=== PATIENT | male | born 1990 | race Caucasian/White ===

== ENCOUNTER 2022-09-21 12:07 | Emergency (ER) | payer BC, SELFPAY ==
[2022-09-21 12:15] VITALS: BP 153/82; PULSE 88; RESP 16; TEMP 36.6; O2SAT 98
--- NOTE | 2022-09-21 12:39 | ED.GENADULT ---
HPI - General Adult General Chief complaint: Dental/Oral Stated complaint: CANKER SORES/SWELLING Source: patient Mode of arrival: ambulatory Limitations: no limitations History of Present Illness HPI narrative: Patient presents for evaluation of a canker sore to the right posterior upper gums for the last week. He has tried several therapies [id number] including or gel which not particularly help. Does consume spicy food frequently. Denies consistent intake of citrus. Reports some pain in his upper and lower gums but denies any known dental fracture. No fever, chills, nausea, vomiting, trismus, problems and secretions. Related Data Allergies Allergy/AdvReac Type Severity Reaction Status Date / Time No Known Allergies Allergy Verified 09/21/22 12:27 Review of Systems Review of Systems: CONSTITUTIONAL: Denies fever, chills, or sweats. EYES: Denies visual changes, redness, or discharge. ENT: Reports pain in upper and lower gums. Reports canker sore to the right upper gum line CARDIOVASCULAR: Denies chest pain, palpitations, or edema. RESPIRATORY: Denies cough or dyspnea. GASTROINTESTINAL: Denies abdominal pain, nausea, vomiting, or diarrhea. GENITOURINARY: Denies dysuria or hematuria. SKIN: Denies rash or itching. MUSCULOSKELETAL: Denies back pain, joint pain, or myalgia. NEUROLOGIC: Denies headache, numbness, dizziness, or weakness. PSYCHIATRIC: Denies anxiety or depression. PMFSH Past Medical History Medical History (Updated 09/21/22 @ 12:44 by Junior Reilly, COOLING SYSTEM OPERATOR, ) No pertinent past medical history Surgical History Surgical History No pertinent past surgical history Family History Family History Mother Family history non-contributory Social History Social History Smoking status: Current every day smoker Tobacco type: e-cigarettes/vaping Substance use: never Gender identity (if verbalized by the patient): Male Spiritual care concerns: No Exam Narrative: GENERAL: Well-appearing, well-nourished, and in no acute distress. HEAD: Normocephalic, atraumatic. EYES: PERRLA and EOMI. ENT: Nares clear, no rhinorrhea or epistaxis. Mucous membranes moist. there is some superficial erosion to the gumline fo posterior aspect of right upper gums. There is tenderness in upper and lower gums without any visible or palpable abscess. No dental fracture visualized. NECK: Supple. No adenopathy or masses. No carotid bruits or JVD CHEST: Clear to auscultation. No respiratory distress. No wheezes rales or rhonchi HEART: Regular rate and rhythm. No murmur heard. Normal peripheral pulses. ABDOMEN: Soft, nontender, nondistended, normal active bowel sounds. EXTREMITIES: Normal range of motion. No edema. SKIN: Warm, dry, no rash. NEURO: No focal deficits. Alert and oriented x3. PSYCH: Normal mood and affect. Course Course Emergency Course: This is a 31-year-old male who presented for evaluation of a canker sore in the right upper gums. Advised he did salt water gargles. Will add triamcinolone dental paste. I do not appreciate any dental abscess but will cover with oral abx in event he has a developing infection. Advise on foods which may exacerbate his symptoms. He should follow up with dentist. Go to ER for worsening symptoms. Pt in agreement with plan of care. Level of Care: Express Care Visit Vital Signs Vital signs: Vital Signs Temperature 36.6 C 09/21/22 12:15 Pulse Rate 88 09/21/22 12:15 Respiratory Rate 16 09/21/22 12:15 Blood Pressure 153/82 H 09/21/22 12:15 Pulse Oximetry 98 09/21/22 12:15 Temperature 36.6 C 09/21/22 12:15 Pulse Rate 88 09/21/22 12:15 Respiratory Rate 16 09/21/22 12:15 Blood Pressure 153/82 H 09/21/22 12:15 Pulse Oximetry 98 09/21/22 12:15
== END 2022-09-21 12:30 | disposition home or self-care (01) ==
PROVIDERS: Emergency Provider Nurse Practitioner
DX: K12.0 Recurrent oral aphthae (principal); K08.89 Other specified disorders of teeth and supporting structures
CPT/HCPCS: 99213; G0463

== ENCOUNTER 2022-11-03 18:02 | Emergency (ER) | payer BC, SELFPAY ==
[2022-11-03 18:07] VITALS: BP 151/96; PULSE 79; RESP 16; TEMP 36.3; O2SAT 96
[2022-11-03 18:11] VITALS: BP 151/96; PULSE 79; RESP 16; TEMP 36.3; O2SAT 96
--- NOTE | 2022-11-03 18:11 | ED.NAVMDI ---
HPI - Nausea/Vomiting/Diarrhea General Chief complaint: Abdominal Pain Stated complaint: STOMACH PAIN Time Seen by Provider: 11/03/22 18:11 Source: patient and RN notes reviewed History of Present Illness HPI Narrative: Patient is a 31-year-old male who presents to urgent care with complaints of epigastric abdominal pains. Patient states it started Tuesday morning after he ate hot wings and drink a lot on Tuesday. Patient states he has had indigestion for a long time and Tums typically takes care of the pain. Patient states he has noticed increased pain after eating and ?Google says it maybe ulcers?. Patient has not followed up with his PCP regarding this issue. Patient currently denies nausea, vomiting. Denies any issues with bowel movement. No other acute complaints. No acute distress noted. Patient aware of the plan of care. Some parts of this dictation were generated by voice recognition software and may contain typographical and/or grammatical inaccuracies. Related Data Home Medications Medication Instructions Recorded Confirmed lisdexamfetamine 30 mg capsule mg 11/03/22 11/03/22 (Vyvanse) Allergies Allergy/AdvReac Type Severity Reaction Status Date / Time No Known Allergies Allergy Verified 11/03/22 18:10 Review of Systems Review of Systems: CONSTITUTIONAL: Denies fever, chills, or sweats. EYES: Denies visual changes, redness, or discharge. ENT: Denies rhinorrhea, congestion, sore throat, or otalgia. CARDIOVASCULAR: Denies chest pain, palpitations, or edema. RESPIRATORY: Denies cough or dyspnea. GASTROINTESTINAL: Reports of epigastric pain without nausea or vomiting GENITOURINARY: Denies dysuria or hematuria. SKIN: Denies rash or itching. MUSCULOSKELETAL: Denies back pain, joint pain, or myalgia. NEUROLOGIC: Denies headache, numbness, or weakness. All other systems reviewed are negative, except as documented in HPI. FOR[facility]LY [facility], [facility] Past Medical History Medical History (Updated 11/03/22 @ 18:40 by HERB Moreno) No pertinent past medical history Surgical History Surgical History No pertinent past surgical history Family History Family History Mother Family history non-contributory Social History Social History Smoking status: Current every day smoker Tobacco type: e-cigarettes/vaping Substance use: never Gender identity (if verbalized by the patient): Male Spiritual care concerns: No Comments At the time of my signature, I reviewed and agree with the nursing past medical, surgical, social, and family history. There is no relevant family history pertinent to the patient complaint. Exam Narrative: GENERAL: This is a well-nourished, well-developed patient, in no apparent distress. HEAD: normocephalic, atraumatic. EYES: PERRL. Sclera clear/white. Vision is grossly intact. EARS: External ears normal NOSE: External nose normal with no obvious nasal discharge, nares without redness, no rhinorrhea. THROAT: Mucous membranes moist NECK: Neck supple GASTROINTESTINAL: Abdomen soft, non-tender, nondistended. Bowel sounds are hypoactive. SKIN: warm, intact with no suspicious lesions or rash, good texture and turgor. NEURO: awake, alert, and oriented to person, place and time. There were no obvious focal neurologic abnormalities. EXTREMITIES: No clubbing, cyanosis, or edema. Course Course Level of Care: Express Care Visit Vital Signs Vital signs: Vital Signs Temperature 97.3 F L 11/03/22 18:07 Pulse Rate 79 11/03/22 18:07 Respiratory Rate 16 11/03/22 18:07 Blood Pressure 151/96 H 11/03/22 18:07 Pulse Oximetry 96 11/03/22 18:07 Oxygen Delivery Room Air 11/03/22 18:07 Temperature 97.3 F L 11/03/22 18:11 Pulse Rate 79 11/03/22 18:11 Respiratory Rate 16 11/03/22 18:11 Bloo
== END 2022-11-03 18:47 | disposition home or self-care (01) ==
PROVIDERS: Emergency Provider Nurse Practitioner Family
DX: R10.13 Epigastric pain (principal); F17.290 Nicotine dependence, other tobacco product, uncomplicated
CPT/HCPCS: 99213; G0463

== ENCOUNTER 2024-11-16 08:11 | Outpatient (CLI) | payer BC, SELFPAY ==
--- NOTE | ~2024-11-16 | US_ITS ---
Limited Abdominal Sonogram: Real-time sonographic imaging of the right upper quadrant was performed. Clinical History: Abnormal liver function studies Findings: The liver appears echogenic with no evidence of mass lesion or bile duct dilatation. Main portal vein demonstrates normal direction of flow. The gallbladder is well distended, and appears nor mal with no evidence of gallstone or wall thickening. The common bile duct measures 3 mm. The visual ized pancreas, aorta, and IVC are unremarkable. Impression: Diffuse fatty infiltration of liver. Reviewed, dictated and finalized at location M. Impression: Diffuse fatty infiltration of liver.
--- OUTSIDE RECORDS SUMMARY | 2024-11-16 08:20 | XMS_ITS | Referral Summary ---
Author Organization [facility] [address] [address] Care Team Providers Care Outdoor Guide Name Role Phone Declan Mcgill MD Primary Care Provider Pop MCNULTY MD, Nikita Peter Unavailable [phone] Allergies No known active allergies Medications No known medications Active Problems Problem Noted Date Diagnosed Date Hypertrophy of nasal turbinates 12/12/2023 Deviated nasal septum 12/09/2023 Hypertrophy of both inferior nasal turbinates Sleep disturbance 12/09/2023 Social History Tobacco Use Types Packs/Day Years Used Date Smoking Tobacco: Every Day Vaping Smokeless Tobacco: Never Tobacco Cessation:Ready to Q uit: Not Asked; Counseling Given: Not Answered Comments:Last vaped 8-13 am Nicotine patch hasn't had one on for 12 hours AUDIT-C Answer Date Recorded Q1: How often do you have a drink containing alc ohol? Monthly or less 03/21/2024 Q2: How many drinks containi ng alcohol do you have on a typical day when you are drinking? 3 or 4 03/21/2024 Q3: How often do you have si x or more drinks on one occasion? Weekly 03/21/2024 Personal Safety Answer Date Recorded Have you ever been in or are you currently in a harmful physical or emotional relationship or is someone making you feel afraid or unsafe? 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 Gender Identity Not on file Sexual Orientation Not on file Last Filed Vital Signs Vital Sign Reading Time Taken Comments Blood Pressure 147/81 03/21/2024 11:30 AM CDT Pulse 79 03/21/2024 11:30 AM CDT Temperature 36.6 C (97.8 F) 03/21/2024 10:59 AM CDT Respiratory Rate 17 04/23/2024 9:53 AM CDT Oxygen Saturation 96% 03/21/2024 11:30 AM CDT Inhaled Oxygen Concentration - - Weight 108.9 kg (240 lb) 04/23/2024 9:53 AM CDT Height 177.8 cm (5' 10 ) 04/23/2024 9:53 AM CDT Body Mass Index 34.44 04/23/2024 9:53 AM CDT Plan of Treatment Not on file Insurance [facility] Advance Directives For more information, please contact: [phone] * Full Code (Latest Code Status on File) Date Activated Date Inactivated Comments 03/21/2024 11:02 AM 03/21/2024 4:31 PM Care Teams Outdoor Guide Relationship Specialty Start Date End Date Declan Mcgill MD [address] [place] [id number] PCP - General Family Medicine 11/09/23 Nikita Lord II, MD [address] [place] [address] Consulting Physician Otolaryngology 03/21/24
--- OUTSIDE RECORDS SUMMARY | 2024-11-16 08:20 | XMS_ITS | Encounter Summary ---
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 Historical Provider [facility] Final Result documented in this encounter Visit Diagnoses Not on filedocumented in this encounter Care Teams Alignment Technician Relationship Specialty Start Date End Date Declan Mcgill MD [address] [place] [address] [address] PCP - General Family Medicine 11/09/23 Nikita Lord II, MD [address] [place] [address] Consulting Physician Otolaryngology 03/21/24 documented as of this encounter
--- OUTSIDE RECORDS SUMMARY | 2024-11-16 08:20 | XMS_ITS | Clinical Summary ---
Author Organization [facility] [address] Address [address] [place] [address] Care Team Providers Care Tax Audit Manager Name Role Phone Declan Mcgill MD Primary Care Provider Pop MCNULTY MD, Nikita Peter Unavailable [phone] Allergies No known active allergies Medications No known medications Active Problems Problem Noted Date Diagnosed Date Hypertrophy of nasal turbinates 12/12/2023 Deviated nasal septum 12/09/2023 Hypertrophy of both inferior nasal turbinates Sleep disturbance 12/09/2023 Surgical History Surgery Date Site/Laterality Comments NASAL SEPTOPLASTY W/ TURBINOPLASTY 03/21/2024 Bilate ral Medical History Medical History Date Comments History of nicotine vaping Hypertrophy of both inferior nasal turbinates 02/2024 Deviated septum Upper respiratory symptom 02/2024 resolv ing as of 03/09 per discussion with patient Sinusitis Family History Medical History Relation Name Comments No Known Problems Father No Known Problems Mother Relation Name Status Comments Father Mother Social History Tobacco Use Types Packs/Day Years [...] on file 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 Gender Identity Not on file Sexual Orientation Not on file Obstetrics History Last Filed Vital Signs Vital Sign Reading [...] 04/23/2024 9:53 AM CDT Plan of Treatment Health Maintenance Due Date Last Done Comments Depression Screening 1992 Hepatitis C Screening 1992 Varicella Vaccines (1 of 2 - 13+ 2-dose series) 2005 Hepatitis B Screening 2010 Regular Well Visit/Exam 18-64 2010 Pneumococcal vaccine <65 (1 of 2 - PCV) 12/30/2011 DTaP/Tdap/Td Vaccine (2 - Td or Tdap) 09/20/2017 09/20/2007 Influenza Vaccine (#1) 2024 HPV Vaccines Aged Out No longer eligi ble based on patient's age to complete this topic Insurance [facility] ACCESS CHOICE [facility] ACCESS CHOICE Advance Directives For more information, please contact: [phone] * Full Code (Latest Code Status on File) Date Activated Date Inactivated Comments 03/21/2024 11:02 AM 03/21/2024 4:31 PM Care Teams Tax Audit Manager Relationship Specialty Start Date End Date Declan Mcgill MD [address] [place] [address] [address] [place] [id number] PCP - General Family Medicine 11/09/23 Nikita Lord II[place] [address] Consulting Physician Otolaryngology 03/21/24
--- OUTSIDE RECORDS SUMMARY | 2024-11-16 08:20 | XMS_ITS | Encounter Summary ---
Author Organization [facility] Facility Care Team Providers Care Md Physician Dermatologist Name Role Phone Declan Mcgill MD Primary Care Provider [phone] Pop MCNULTY MD, Nikita Peter Unavailable [phone] Encounter Details Date Type Department Care Team (Latest Contact Info) Description 11/28/2015 Orders Only [facility] CLINCONV ProviderSofia MD [address] [place] [address] Social History Tobacco Use Types Packs/Day Years Used Date Smoking Tobacco: Never Assessed Sex and Gender Information Value Date Recorded Sex Assigned at Not on file 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 Historical Provider Final Res ult documented in this encounter Visit Diagnoses Not on filedocumented in this encounter Care Teams Md Physician Dermatologist Relationship Specialty Start Date End Date Declan Mcgill MD [address] [place] [address] [address] [place] [address] PCP - General Family Medicine 11/09/23 Nikita Lord II, MD [address] [place] [address] Consulting Physician Otolaryngology 03/21/24 documented as of this encounter
== END 2024-11-16 08:12 | disposition home or self-care (01) ==
PROVIDERS: PCP Family Medicine; Visit Provider Family Medicine
DX: K76.0 Fatty (change of) liver, not elsewhere classified (principal); R94.5 Abnormal results of liver function studies
CPT/HCPCS: 76705